=== PATIENT | female | born 2000 | race Hispanic/Latino ===

== ENCOUNTER 2024-03-03 15:45 | Emergency (ER) | payer OTHER ==
[~2024-03-03] VITALS: Ht 167.6 cm; Wt 152.3 kg
[~2024-03-03 15:45] MED LIST: IBUPROFEN400 MG PO; LEVSIN-SL0.125 MG SL; LOSARTAN POTASS50 MG PO; METFORMIN HCL500 MG PO; PHENTERMINE H37.5 MG PO; PRENATAL + DHA1 EAC1 PO; TRULICITY0.75 MG/0. SUB-Q; VALTREX1000 MG PO
[2024-03-03 16:15] LABS: BILIRUBIN, URINE NEGATIVE (negative); BLOOD/HGB, URINE LARGE (Negative); KETONE, URINE NEGATIVE (Negative); LEUK ESTERASE, URINE NEGATIVE (negative); NITRITE, URINE NEGATIVE (negative); PH, URINE 7.5 (5-7)
[2024-03-03 16:21] LABS: EPITHELIAL CELLS, URINE SQUAMOUS 3+ /lpf (0-1+)
[2024-03-03 16:22] LABS: BACTERIA, URINE 1+ /hpf (negative); CASTS, URINE NONE SEEN \\lpf; COLLECTION TYPE, URINE CLEAN CATCH; CRYSTALS, URINE NONE SEEN (0-1+); REFLEX CULTURE, URINE No (No)
[2024-03-03 16:48] LABS: BASOPHILS 0.7 % (0-2); HEMATOCRIT 38.9 % (35.0-50.0); HEMOGLOBIN 13.1 g/dL (12.0-18.0); LYMPHOCYTES 30.6 % (24-44); MCH 28.4 (27-36); MCHC 33.6 g/dl (30-36); MCV 84.5 fl (81-99); MONOCYTES 6.5 % (0-12); NEUTROPHILS 60.2 % (39-80); PLATELET COUNT 167 K/uL (140-440); RBC 4.61 M/ul (4.3-5.7); RDW 14.4 (10.5-15.0)
[2024-03-03 17:10] LABS: ABO B; RH POSITIVE
[2024-03-03 17:23] LABS: ALBUMIN 3.7 g/dL (3.4-5.0); ALBUMIN/GLOBULIN RATIO 1.06 (1.1-2.4); ANION GAP 13.1 (7-21); BILIRUBIN, TOTAL 0.5 ng/dL (0.2-1.0); BUN/CREATININE RATIO 11.26 (6.0-28.6); CALCIUM 9.2 mg/dL (8.5-10.1); CREATININE, SERUM 0.71 mg/dL (0.55-1.02); POTASSIUM 5.1 mmol/L (3.5-5.1); PROTEIN, TOTAL 7.2 g/dL (6.4-8.2)
[2024-03-03 18:19] VITALS: BP 140/78
== END 2024-03-03 18:21 | disposition home or self-care (01) ==
LOC: ED 15:45
PROVIDERS: Emergency Medicine
DX: O20.0 Threatened abortion (principal); O16.1 Unspecified maternal hypertension, first trimester; Z3A.01 Less than 8 weeks gestation of pregnancy; Z79.84 Long term (current) use of oral hypoglycemic drugs; Z79.899 Other long term (current) drug therapy
CPT/HCPCS: 36415; 76801; 76817; 80053; 81001; 84702; 84703; 85025; 86900; 86901; 99284-25